=== PATIENT | male | born 1970 | race American Indian/Alaskan Native ===

== ENCOUNTER 2017-11-05 13:15 | Emergency (ER) | payer MEDICARE ==
[2017-11-05] MEDS ORDERED: NACL 0.9% 1000 ML 1,000 ML IV ONE ×2 (13:47→21:08)
[2017-11-05 14:26] LABS: Basophils % (Auto) 0.4 % (0.0-1.8); Eosinophils % (Auto) 0.1 % (0.0-4.3); Hematocrit 44.8 % (35.5-45.6); Hemoglobin 14.7 gm/dl (11.8-15.2); Mean Corpuscular HGB Conc 33 % (32-34); Mean Corpuscular Hemoglobin 28 pg (28-32); Mean Corpuscular Volume 86 fl (84-94); Platelet Count 255 K/mm3 (140-440); Red Blood Count 5.23 M/mm3 (3.65-5.03); Red Cell Distribution Width 13.9 % (13.2-15.2); White Blood Count 8.4 K/mm3 (4.5-11.0)
[2017-11-05 14:36] LABS: INR 0.96 (0.87-1.13)
[2017-11-05 14:37] LABS: Partial Thromboplastin Time 27.7 Sec. (24.2-36.6)
[2017-11-05 14:44] LABS: Alanine Aminotransferase 23 units/L (7-56); Albumin 4.5 g/dL (3.9-5); Albumin/Globulin Ratio 1.3 %; Alkaline Phosphatase 111 units/L (35-129); Anion Gap 22 mmol/L; BUN/Creatinine Ratio 18; Blood Urea Nitrogen 16 mg/dL (9-20); Calcium 9.1 mg/dL (8.4-10.2); Carbon Dioxide 21 mmol/L (22-30); Chloride 102.7 mmol/L (98-107); Glucose 219 mg/dL (75-100); Lipase 30 units/L (13-60); Potassium 4.2 mmol/L (3.6-5.0); Sodium 141 mmol/L (137-145); Total Protein 7.9 g/dL (6.3-8.2)
[2017-11-05] MEDS ORDERED: MORPHINE IV ONE (19:55)
--- NOTE | 2017-11-05 21:05 | Emergency Department Report ---
ED Abdominal Pain HPI - General Chief Complaint: Abdominal Pain Stated Complaint: CANT GO TO THE BATHROOM Time Seen by Provider: 11/05/17 20:22 Source: patient Mode of arrival: Ambulatory Limitations: No Limitations - History of Present Illness Initial Comments: 46 YO MALE WITH CHIEF C/O ABDOMINAL PAIN AND CONSTIPATION FOR 2 DAYS. HE ATE A LARGE AMOUNT OF POPCORN AND COULD NOT HAVE A BOWEL MOVEMENT AFTER THAT. HE WENT TO THE [place] AND BOUGHT SUPPOSITORIES AND INSERTED ONE. HE CONTINUED TO HAVE PAIN AND THEN CALLED HIS PARENTS TO COME TO THE HOSPITAL BECAUSE HE WAS IN ALOT OF PAIN. HE HAD LARGE BOWEL MOVEMENT WHILE WAITING IN HIS ROOOM TO BE SEEN BY THE DOCTOR. BOWEL MOVEMENT WCONSISTED ALMOST ENTIRELY OF CORN KERNELS. MD Complaint: abdominal pain -: Gradual, days(s) (2) Location: R flank Migration to: no migration Severity scale (0 -10): 10 Quality: aching Consistency: constant Improves With: bowel movement Worsens With: movement Context: other (EATING TOO MUCH CORN ) - Related Data Previous Rx's Medication Instructions Recorded Last Taken Type Ibuprofen [Motrin] 800 mg PO TID PRN #30 tablet 05/05/14 Unknown Rx Polyethylene Glycol 3350 [Miralax 17 gm PO QDAY #1 bottle 11/05/17 Unknown Rx 3350] Allergies Allergy/AdvReac Type Severity Reaction Status Date / Time No Known Allergies Allergy Unverified 04/05/14 13:06 ED Review of Systems ROS: Stated complaint: CANT GO TO THE BATHROOM Other details as noted in HPI Constitutional: denies: chills, fever Eyes: denies: eye pain, eye discharge, vision change ENT: denies: ear pain, throat pain Respiratory: denies: cough, shortness of breath, wheezing Cardiovascular: denies: chest pain, palpitations Endocrine: no symptoms reported Gastrointestinal: diarrhea (2 EPISODES), constipation, other (BRIGHT RED BLOOD ) . denies: nausea, vomiting Genitourinary: denies: urgency, dysuria Musculoskeletal: denies: back pain, joint swelling, arthralgia Skin: denies: rash, lesions Neurological: denies: headache, weakness, paresthesias Psychiatric: denies: anxiety, depression Hematological/Lymphatic: denies: easy bleeding, easy bruising ED Past Medical Hx - Past Medical History Hx Hypertension: Yes Hx Diabetes: Yes - Surgical History Past Surgical History?: No - Social History Smoking Status: Never Smoker Substance Use Type: Alcohol - Medications Home Medications: Home Medications Medication Instructions Recorded Confirmed Last Taken Type Ibuprofen [Motrin] 800 mg PO TID PRN #30 tablet 05/05/14 Unknown Rx Polyethylene Glycol 3350 [Miralax 17 gm PO QDAY #1 bottle 11/05/17 Unknown Rx 3350] ED Physical Exam - General Limitations: No Limitations General appearance: alert, in no apparent distress, other (MAKING JOKES WHEN I TOLD HIME I WOULD BE DOING A RECTAL EXAM "SO YOU ARE GOING TO GET TO THE BOTTOM OF THINGS") - Head Head exam: Present: atraumatic, normocephalic - Eye Eye exam: Present: normal appearance, EOMI - ENT ENT exam: Present: mucous membranes moist - Neck Neck exam: Present: normal inspection, full ROM - Respiratory Respiratory exam: Present: normal lung sounds bilaterally. Absent: respiratory distress, wheezes, rales - Cardiovascular Cardiovascular Exam: Present: regular rate, normal rhythm, normal heart sounds. Absent: systolic murmur, diastolic murmur, rubs, gallop - GI/Abdominal GI/Abdominal exam: Present: soft, normal bowel sounds - Rectal Rectal exam: Present: normal rectal tone, heme (+) stool (NOO GROSS BLOOD SEEN) , other (LARGE AMOUNT OF CORN KERNELS IN RECTAL VAULT, FISSURE AT 60CLOCK WHILE PT ON HIS RIGHT SIDE) - exam: Present: normal inspection, circumcision. Absent: testicular tenderness, scrotal swelling, vertical testicular lie External exam: Present: normal external exam - Extremities Exam Extremities exam: Present: normal inspection, full ROM - Back Exam Back exam: Present: normal inspection, full ROM - Neurological Exam Neurological exam: Present: alert, oriented X3, CN II-XII intact - Psychiatric Psychiatric exam: Present: normal affect, normal mood - Skin Skin exam: Present: warm, dry, intact, normal color. Absent: rash ED Course Vital Signs 11/05/17 11/05/17 11/05/17 13:42 18:16 18:23 Temperature 99.3 F Pulse Rate 87 74 Respiratory 20 20 18 Rate Blood Pressure 162/106 141/73 O2 Sat by Pulse 95 98 98 Oximetry 11/05/17 20:00 Temperature Pulse Rate Respiratory 20 Rate Blood Pressure O2 Sat by Pulse Oximetry ED Medical Decision Making - Lab Data Result diagrams: 11/05/17 13:56 11/05/17 13:56 - EKG Data -: EKG Interpreted by Me EKG shows normal: sinus rhythm, axis, intervals, QRS complexes, ST-T waves - Radiology Data Radiology results: report reviewed ( FOR FREE AIR), image reviewed Critical care attestation.: If time is entered above; I have spent that time in minutes in the direct care of this critically ill patient, excluding procedure time. ED Disposition Clinical Impression: Rectal fissure Abdominal pain Qualifiers: Abdominal location: unspecified location Qualified Code(s): R10.9 - Unspecified abdominal pain Constipation Qualifiers: Constipation type: outlet dysfunction constipation Qualified Code(s): K59.02 - Outlet dysfunction constipation Disposition: TO HOME OR SELFCARE Is pt being admited?: No Does the pt Need Aspirin: No Condition: Stable Instructions: Constipation (ED), Acute Abdominal Pain (ED), Rectal Bleeding (ED ) Additional Instructions: please vary your diet to include lots of fruits, fiber, and lots of water. Please take the medication as we talked about. rsee your dr in 2 days or return to the emergency department if your symptoms return or for any concerns Prescriptions: Polyethylene Glycol 3350 [Miralax 3350] 17 gm PO QDAY #1 bottle Referrals: GRETCHEN MCCARTHY MD [Primary Care Provider] - 3-5 Days Time of Disposition: 22:41
--- NOTE | 2017-11-05 21:56 | XRay Report ---
FINAL REPORT EXAM: XR ABD SERIES W CXR 1V HISTORY: abdominal pain TECHNIQUE: PA view of the chest and supine and erect views of the abdomen PRIORS: None. FINDINGS: Chest: Lungs are clear. Trachea is midline. Cardiac and mediastinal silhouettes are unremarkable. Bony structures are intact. Abdomen: The bowel gas pattern is nonspecific. No free air is identified. Soft tissues have no evidence for mass shadows or calcifications. The bony structures are intact. IMPRESSION: 1. No acute cardiopulmonary process seen. 2. Nonspecific, nonobstructive bowel gas pattern with no acute process noted.
[2017-11-05 23:16] VITALS: BP 147/86
== END 2017-11-05 23:18 | disposition home or self-care (01) ==
LOC: ED 13:15
DX: K59.00 Constipation, unspecified (principal); K60.2 Anal fissure, unspecified; I10 Essential (primary) hypertension; E11.9 Type 2 diabetes mellitus without complications
CPT/HCPCS: 36415; 74022; 80053; 83690; 85025; 85610; 85730; 86850; 86900; 86901; 93005; 93010; 96361; 96374; 99284; J2270; J7030